=== PATIENT | male | born 1985 | race Caucasian/White ===

== ENCOUNTER 2018-03-27 06:51 | Emergency (ER) | payer SELFPAY ==
[2018-03-27] MEDS ORDERED: MOTRIN PO ONE (08:59)
[2018-03-27] MEDS ORDERED: TRIMOX PO ONE (09:00)
--- NOTE | 2018-03-27 09:01 | Emergency Department Report ---
Minor Respiratory - HPI Chief Complaint: Earache Stated Complaint: LEFT EARACHE Time Seen by Provider: 03/27/18 08:57 Duration: 6 days Pain Location: Ear (left ear) Severity: severe (05/12) Minor Respiratory: Yes Able to Tolerate Fluids, Yes Ear Pain (left ear pain and drainage. Patient said he felt a pop), No Rhinorrhea, No Sore Throat, No Cough , No Sick Contacts, No Hemoptysis, No Chest Pain, No Shortness of Breath, No Fever Other History: This is a 32-year-old male here complaining of left ear pain since last Thursday which was 6 days ago. He said his ears very painful and denies any trauma but says that he heard a pop and blood pressure and ear started draining. Denies any medical problem. Denies any nausea or vomiting, dizziness, unsteadiness and feet, fever or chills, cough and or chest pain, fever or chills. Denies any difficulty in vision. He said he took over-the- counter Tylenol which did not help this pain. No alleviating or exacerbating factors. No similar incident in the past. ED Review of Systems ROS: Stated complaint: LEFT EARACHE Other details as noted in HPI Constitutional: denies: chills, fever Eyes: denies: eye pain, eye discharge, vision change ENT: ear pain (left ear pain and drainage and). denies: throat pain, congestion Respiratory: denies: cough, shortness of breath, SOB with exertion, SOB at rest , stridor, wheezing Cardiovascular: denies: chest pain, palpitations, edema, syncope Endocrine: no symptoms reported Gastrointestinal: denies: nausea, vomiting, diarrhea Genitourinary: denies: urgency, dysuria Musculoskeletal: denies: back pain, joint swelling, arthralgia Skin: denies: rash, lesions Neurological: denies: headache, weakness, numbness, paresthesias, confusion, abnormal gait, vertigo ED Past Medical Hx - Past Medical History Previous Medical History?: No - Surgical History Past Surgical History?: No - Family History Family history: hypertension - Social History Smoking Status: Never Smoker Substance Use Type: None - Medications Home Medications: Home Medications Medication Instructions Recorded Confirmed Last Taken Type Acetaminophen/Codeine [Tylenol 1 tab PO Q6H PRN #14 tab 03/27/18 Unknown Rx /Codeine # 3 tab] Amoxicillin [Amoxicillin TAB] 875 mg PO BID 10 Days #20 tablet 03/27/18 Unknown Rx Ibuprofen [Motrin] 800 mg PO Q8HR PRN #15 tablet 03/27/18 Unknown Rx Minor Respiratory Exam - Exam General: Vital signs noted. No distress. Alert and acting appropriately. This is a 32-year-old male well-nourished well-developed in no acute distress HEENT: Yes Moist Mucous Membranes (uvula midline and oral airways patent), No Pharyngeal Erythema, No Pharyngeal Exudates, No Rhinorrhea, No Conjuctival Injection, No Frontal Tenderness, No Maxillary Tenderness Ear: Left TM Bulge (left TM rupture with clear drainage in the canal. Right TM is normal), Left EAC Discharge, Neither TM Erythema (hearing is normal), Neither EAC Pain Neck: Yes Supple (full range of motion.), No Adenopathy Lungs: Yes Good Air Exchange (CTAB), No Wheezes, No Ronchi, No Stridor, No Cough , No Labored Respirations, No Retractions, No Use of Accessory Muscles, No Other Abnormal Lung Sounds Heart: Yes Regular (S1, S2. Regular rate rhythm), No Murmur Abdomen: Yes Normal Bowel Sounds (normal bowel sounds in all quadrants.), No Tenderness (NTTP in all quadrants), No Peritoneal Signs Skin: No Rash, No Edema Neurologic: Alert and oriented, 3, normal gait. GCS is 15. No central or peripheral nervous system deficit. Musculoskeletal: Unremarkable. No cce. + 2 pulses in all extremities, no neurovascular compromise ED Course Vital Signs 03/27/18 07:26 Temperature 98 F Pulse Rate 80 Respiratory 18 Rate Blood Pressure 131/79 O2 Sat by Pulse 96 Oximetry - Reevaluation(s) Reevaluation #1: 03/27/18 09:46 Patient and started on amoxicillin for ruptured TM and Motrin 800 mg for left ear pain. Pain is better. ED Medical Decision Making - Medical Decision Making This is a 32-year-old male here reports that he is having in left ear pain and he thinks that his eardrum ruptured about 6 days ago. Pain is 10 out of 10 and is been taking Tylenol without any relief. Patient was seen and examined by myself and found to have normal examination except for his left TM is ruptured with scant amount of clear drainage in ear canal. Patient vital signs are stable he is afebrile. I discussed diagnosis and treatment plan the patient and he voiced understanding. Patient has no signs of peripheral or central nervous system deficit on physical exam. He was given Motrin 800 mg by mouth for left ear pain which relieved this pain and amoxicillin 875 mg by mouth to start for infection. Patient is stable and I discussed with him that mostly eardrum well repaired on its own within 6 weeks to 2 months but he needs to follow up with ear nose and throat and also primary care doctor. I referred him to Dr. Jenkins, ENT and also to [facility]. He is follow up in 2-3 days and he voiced understanding. Vital signs are stable he is afebrile and discharged home with prescription for amoxicillin, Tylenol No. 3 and Motrin. Critical care attestation.: If time is entered above; I have spent that time in minutes in the direct care of this critically ill patient, excluding procedure time. ED Disposition Clinical Impression: Rupture of left tympanic membrane, Otalgia, left ear Disposition: TO HOME OR SELFCARE Is pt being admited?: No Does the pt Need Aspirin: No Condition: Stable Instructions: Ruptured Eardrum (ED), Earache (ED) Additional Instructions: Please avoid getting fluid in your ears. Take antibiotic for infection Take Motrin for mild to moderate pain in please take this medication with food as it can cause upset T his stomach lining. Take Tylenol 3 for severe pain. Please follow up with ear nose and throat and primary care physician in 2-3 days If his symptoms or symptoms and he developed loss of hearing, please return to the emergency room [facility] Referrals: TRACY WAYNE MD [Staff Physician] - 2-3 Days PRIMARY CARE, [Primary Care Provider] - 2-3 Days [facility] [Outside] - 2-3 Days Forms: Work/School Release Form(ED)
[2018-03-27 10:07] VITALS: BP 131/85
== END 2018-03-27 10:07 | disposition home or self-care (01) ==
LOC: ED 06:51
DX: H72.92 Unspecified perforation of tympanic membrane, left ear (principal)
CPT/HCPCS: 99282

== ENCOUNTER 2021-12-27 19:02 | Emergency (ER) | payer SELFPAY | END 2021-12-27 19:50 | disposition left against medical advice (07) | LOC: ED 19:02 | DX: S09.90XA Unspecified injury of head, initial encounter (principal); Z53.21 Procedure and treatment not carried out due to patient leaving prior to being seen by health care provider; X58.XXXA Exposure to other specified factors, initial encounter; Y93.89 Activity, other specified; Y92.89 Other specified places as the place of occurrence of the external cause; Y99.8 Other external cause status ==